=== PATIENT | female | born 1955 | race Caucasian/White ===

== ENCOUNTER 2018-08-18 07:20 | Day surgery (SDC) | payer BC, OTHER ==
[~2018-08-18 07:20] MED LIST: Buffered Lidocaine 0.9% SYRIN* 5 ML/SYR SYRINGE INTRADERM ONE; Dexamethasone IV* 4 MG/ML 1 ML (4 MG) IV SLOW PU ONE; Famotidine IV* 10 MG/ML 2 ML (20 mg) IV ONE; Lactated Ringers 1000 ML Bag* 1,000 ML IV SCH; Metoclopramide IV* 5 MG/ML 2 ML VIAL IV SLOW PU ONE; Scopolamine 1.5 mg* PATCH TRANSDERM ONE
[2018-08-18] MEDS ORDERED: Lidocain 1% EPI 1:100,000 * 30 ML MDV ONE (07:29)
[2018-08-18] MEDS ORDERED: EPINEPHRINE 1 MG/ML 1 ML VIAL ONE (07:29)
[2018-08-18] MEDS ORDERED: Gelfoam 12-7 ADSORBABL SPONGE* 1 EA SPONGE ONE ×2 (07:29→12:50)
[2018-08-18] MEDS ORDERED: Ciprofloxacin 0.3% OPTH.SOL* 2.5 ML BTL ONE (07:29)
[2018-08-18] MEDS ORDERED: Metoclopramide IV* 5 MG/ML 2 ML VIAL ONE (07:39)
[2018-08-18] MEDS ORDERED: Famotidine IV* 10 MG/ML 2 ML (20 mg) ONE (07:39)
[2018-08-18] MEDS ORDERED: Dexamethasone IV* 4 MG/ML 1 ML (4 MG) ONE (07:39)
[2018-08-18] MEDS ORDERED: Scopolamine 1.5 mg* PATCH ONE (07:39)
[2018-08-18] MEDS ORDERED: fentaNYL* 50 MCG/ML 5 ML VIAL (250 MCG VIAL) ONE (09:41)
[2018-08-18] MEDS ORDERED: Midazolam* 1 MG/ML 2 ML VIAL (2 MG) ONE (09:41)
[2018-08-18] MEDS ORDERED: Rocuronium* 10 MG/ML VIAL ONE (09:41)
[2018-08-18] MEDS ORDERED: VASOPRESSIN 20 UNITS/ML 1 ML VIAL ONE (10:17)
[2018-08-18] MEDS ORDERED: Phenylephrine INJ* 10 MG/ML 1 ML VIAL (10 MG) ONE (10:29)
[2018-08-18] MEDS ORDERED: Succinylcholine* 20 MG/ML 10 ML VIAL ONE (10:29)
[2018-08-18] MEDS ORDERED: Propofol* 10 MG/ML 20 ML BTL ONE (10:29)
[2018-08-18] MEDS ORDERED: Lidocaine 2% PF * 5 ML VIAL ONE (10:29)
[2018-08-18] MEDS ORDERED: EPHEDrine (Pressors)* 50 MG/ML VIAL ONE (10:29)
[2018-08-18] MEDS ORDERED: fentaNYL* 50 MCG/ML 2 ML VIAL (100 MCG VIAL) IV PRN (10:38)
[2018-08-18] MEDS ORDERED: Naloxone* 0.4 MG/ML 1 ML VIAL IV PRN (10:38)
[2018-08-18] MEDS ORDERED: Ketorolac INJ* 30 MG/ML 1 ML VIAL IV PRN (10:38)
[2018-08-18] MEDS ORDERED: Acetaminophen TAB* 325 MG PO PRN (10:38)
[2018-08-18] MEDS ORDERED: PROCHLORPERAZINE INJ 5 MG/ML 2 ML VIAL IV PRN (10:38)
[2018-08-18] MEDS ORDERED: DiMENhydriNATE IV* 50 MG/ML VIAL IV PUSH PRN (10:38)
[2018-08-18] MEDS ORDERED: HYDROcodone/ACETAMIN 5-325 MG* 1 TAB PO PRN (10:38)
[2018-08-18] MEDS ORDERED: Bacitracin IV* 50,000 UNITS INJ ONE (11:43)
[2018-08-18] MEDS ORDERED: Bacitracin OINTMENT* 0.5% 0.5 oz TUBE ONE (11:45)
[2018-08-18] MEDS ORDERED: Ofloxacin 0.3% (Ear Drop)* 5 ml BTL ONE (11:57)
[2018-08-18] MEDS ORDERED: Ondansetron INJ* 2 MG/ML VIAL ONE (12:35)
[2018-08-18] MEDS ORDERED: Ketorolac INJ* 30 MG/ML 1 ML VIAL ONE (14:10)
[2018-08-18 14:36] VITALS: BP 147/72
--- NOTE | 2018-08-18 20:55 | OP ---
DATE OF OPERATION: 08/18/18 - FOR[facility] DATE OF : 59 SURGEON: Wiliam Jackson MD MATTRESS FINISHER: None. ANESTHESIA: General. PRE-OP DIAGNOSIS: Perforation of the right tympanic membrane with conductive hearing loss. POST-OP DIAGNOSIS: Perforation of the right tympanic membrane with conductive hearing loss. OPERATIVE PROCEDURE: Revision right tympanoplasty with ossicular chain reconstruction. INDICATIONS: This is a 62-year-old woman, who had a right tympanomastoidectomy canal wall up procedure done about 3-1/2 years ago for cholesteatoma. Several months ago, she had episode of right-sided drainage and had developed partial extrusion of her right prosthesis. CT scan of the temporal bones was also concerning for possible cholesteatoma given some opacification of the mastoid cavity. The decision was made to bring the patient back to the operating room for right revision tympanoplasty with revision ossiculoplasty and possible removal of cholesteatoma. FINDINGS: Partially extruded hydroxyapatite PORP. ESTIMATED BLOOD LOSS: Negligible. DESCRIPTION OF PROCEDURE: On 08/18/18, the patient was brought to the operating room. General anesthesia was induced and oral endotracheal tube was placed. [facility]'s facial nerve monitor was applied and found to be in good working order. The patient's right ear was prepped and draped with Betadine in sterile fashion. A postauricular injection of local anesthetic 1% lidocaine with 1:100, 000 epinephrine was made. Approximately 3.5 cc were used. The ear canal was suctioned free of Betadine and irrigated. A 4-quadrant canal injection was made with 1% lidocaine with 1:100,000 epinephrine. An angled Hooper blade was then used to make a curvilinear incision from 12 o'clock to 6 o'clock about a centimeter lateral to the tympanic annulus. A piece of epi-soaked Gelfoam was placed against the incision. Attention was then turned postauricularly. A postauricular incision was made at the site of the prior scar. This enabled exposure of the temporalis muscle and a small piece of fascia was harvested for graft material. It was pressed and set aside to dry. The mastoid periosteum was then reflected anteriorly in continuity with the posterior canal skin down to the level of the endaural incision. This allowed the ear to be brought forward. The mastoid cavity was then entered. There was some fluid and adhesion and scar tissue present in the mastoid cavity, but no evidence of cholesteatoma. The tympanomeatal flap was then elevated carefully. There were a lot of adhesions around the prosthesis in the middle ear space. These were teased away. The prosthesis appeared to be in fairly good position, although the stapes capitulum was somewhat eroded by the hydroxyapatite head had partially eroded through the TM. So, the prosthesis was removed. Middle ear adhesions were divided. A Hilaria Sullivan centered PORP prosthesis was selected. This was measured with template blanks and determined to have optimal length of 1.5 mm. The prosthesis was cut to length. A piece of cartilage was harvested from the conchal region. This was trimmed to a thickness of approximately 0.2 mm and then trimmed into a circular fashion to sit on top of the titanium prosthesis. The prosthesis was placed into the middle ear. It was shored up with small pieces of Gelfoam. The cartilage cap was placed on the prosthesis. The temporalis fascia was placed on top of that and underneath the tympanomeatal flap. The remainder of the middle ear space was packed with Floxin-soaked Gelfoam. The tympanomeatal flap was laid back down. There was some defect of the posterior canal wall, which was probably due to some bone resorption of very thin area at the time of her surgery. This was reconstructed with small piece of cartilage as well. The mastoid cavity was then filled with Floxin-soaked Gelfoam. The ear was sutured back into position by closing both the mastoid periosteum and skin. The remainder of the ear canal was then filled with Floxin-soaked Gelfoam. Bacitracin ointment was placed on the suture line. A Claiborne dressing was then applied. The patient was then returned to the care of the anesthesiologist, extubated and delivered to the PACU. [id number]/[facility] #: [id number] ANCA
== END 2018-08-18 14:39 | disposition home or self-care (01) ==
LOC: OR 07:20
PROVIDERS: ATTEND Otolaryngology
DX: H72.03 Central perforation of tympanic membrane, bilateral (principal); H90.11 Conductive hearing loss, unilateral, right ear, with unrestricted hearing on the contralateral side; Z87.891 Personal history of nicotine dependence; I10 Essential (primary) hypertension; J30.89 Other allergic rhinitis
CPT/HCPCS: A9270-GY; J0330; J1100; J1885; J2250; J2405; J2704; J2765; J3010